=== PATIENT | female | born 1995 | race African-American/Black ===

== ENCOUNTER 2018-10-23 13:07 | Inpatient (IN) | payer MEDICAID ==
[~2018-10-23] VITALS: Ht 165.1 cm; Wt 55.0 kg
[2018-10-23] MEDS ORDERED: ONDANSETRON HCL 4MG/2ML INJ IV STA (13:57)
[2018-10-23] MEDS ORDERED: SODIUM CHLORIDE 0.9% 1,000 ML IV ONE ×2 (13:57→18:28)
[2018-10-23] MEDS ORDERED: MORPHINE SULFATE 4 MG/ML CPJ (NOT FOR IM USE) IV STA (13:57)
[2018-10-23] MEDS ORDERED: FAMOTIDINE 20MG/2ML VIAL IV ONE (14:00)
[2018-10-23 14:32] LABS: HEMATOCRIT. 25.9 % (36.0-48.0); HEMOGLOBIN. 8.9 g/dL (12.0-16.0); MEAN CORPUSCULAR HEMOGLOBIN 24.9 pg (28.0-32.0); MEAN CORPUSCULAR VOLUME 72.4 fL (81.0-99.0); MEAN PLATELET VOLUME 8.9 fl (7.4-10.4); PLATELET 425 x1000/uL (130-400); RED BLOOD CELL COUNT 3.58 mill/uL (4.2-5.4); RED CELL DISTRIBUTION WIDTH 19.1 % (11.6-14.6)
[2018-10-23 14:37] LABS: CHLORIDE 103 mEq/L (98-107)
[2018-10-23 14:41] LABS: ETHANOL BLOOD < 10 mg/dL
[2018-10-23 14:56] LABS: INR 1.1; PARTIAL THROMBOPLASTIN TIME 33.4 sec (23.4-31.0); PROTHROMBIN TIME 11.6 sec (9.6-11.0)
[2018-10-23 14:57] LABS: HCG SCREEN NEGATIVE
[2018-10-23] MEDS ORDERED: POTASSIUM CHLORIDE 20MEQ TABLET SR PO ONE (15:00)
[2018-10-23 15:14] LABS: PLATELET ESTIMATE INCREASED
[2018-10-23 22:09] VITALS: BP 93/60
[2018-10-23] MEDS ORDERED: GABA-531 PO (22:40)
[2018-10-23] MEDS ORDERED: QUET300T19 PO (22:40)
[2018-10-24] VITALS: BP 86/57
[2018-10-24] MEDS ORDERED: SODIUM CHLORIDE 0.9% 1,000 ML IV SCH
[2018-10-24] MEDS ORDERED: ONDANSETRON HCL 4MG/2ML INJ IV PRN
[2018-10-24] MEDS ORDERED: POTASSIUM CHLORIDE 20MEQ TABLET SR PO NR ×2 (02:00→08:15)
[2018-10-24 04:00] VITALS: BP 87/56
[2018-10-24] MEDS: SODIUM CHL 0.9% + KCL 20MEQ/L 1,000 ML IV SCH ×2 (04:34→13:00)
[2018-10-24 07:24] LABS: BASOPHILS % 0.4 % (0.0-2.0); EOSINOPHILS % 0.3 % (0.0-5.0); HEMATOCRIT. 21.2 % (36.0-48.0); HEMOGLOBIN. 7.2 g/dL (12.0-16.0); LYMPHOCYTES % 10.5 % (20.0-50.0); MEAN CORPUSCULAR VOLUME 73.9 fL (81.0-99.0); MEAN PLATELET VOLUME 8.7 fl (7.4-10.4); MONOCYTES % 11.3 % (2.0-8.0); NEUTROPHILS % 77.5 % (40.0-76.0); PLATELET 349 x1000/uL (130-400); RED BLOOD CELL COUNT 2.87 mill/uL (4.2-5.4); RED CELL DISTRIBUTION WIDTH 18.9 % (11.6-14.6)
[2018-10-24 08:00] VITALS: BP 97/47
[2018-10-24 08:48] LABS: TOTAL IRON BINDING CAPACITY 154 ug/dL (250-450)
[2018-10-24] MEDS ORDERED: CEFTRIAXONE 1 G PREMIX 50 ML IV SCH (09:00)
[2018-10-24] MEDS ORDERED: FAMOTIDINE 20MG TABLET PO SCH (09:00)
[2018-10-24] MEDS ORDERED: METRONIDAZOLE 500 MG PREMIX 100 ML IV SCH (10:00)
[2018-10-24 11:29] LABS: CREATINE KINASE 47 IU/L (26-192)
[2018-10-24] MEDS ORDERED: POTASSIUM CHLORIDE INJ 40 MEQ in SODIUM CHLORIDE 0.9% 500 ML IV NR (13:00)
[2018-10-24 14:56] LABS: CLARITY URINE CLOUDY (CLEAR); COLOR URINE YELLOW (YELLOW); KETONES URINE NEGATIVE (NEGATIVE); LEUKOCYTE ESTERASE URINE 1+ (NEGATIVE); NITRITE URINE NEGATIVE (NEGATIVE); OCCULT BLOOD URINE NEGATIVE (NEGATIVE); PH URINE 5.5 (4.5-8.0); PROTEIN URINE 2+ (NEGATIVE); SPECIFIC GRAVITY URINE 1.011 (1.005-1.030); UROBILINOGEN URINE 0.2 E.U./dL (0.2-1.0)
[2018-10-24 15:16] LABS: *AMPHETAMINES SCREEN URINE NEGATIVE (NEGATIVE); *BARBITURATES SCREEN URINE NEGATIVE (NEGATIVE); *BENZODIAZEPINES SCREEN URINE NEGATIVE (NEGATIVE); *COCAINE SCREEN URINE NEGATIVE (NEGATIVE)
[2018-10-24 15:17] LABS: METHADONE URINE SCREEN NEGATIVE (NEGATIVE); PHENCYCLIDINE URINE SCREEN NEGATIVE (NEGATIVE)
[2018-10-24 15:22] LABS: CANNABINOID URINE SCREEN PRESUMTIVE POSITIVE (NEGATIVE); OPIATES URINE SCREEN PRESUMTIVE POSITIVE (NEGATIVE)
[2018-10-24] MEDS ORDERED: MIDODRINE HCL 5MG TABLET PO SCH (17:15)
[2018-10-24 20:00] VITALS: BP 102/60
[2018-10-25 06:21] LABS: ABSOLUTE LYMPHOCYTES 0.4 x10E3/uL (0.7-3.1); ABSOLUTE MONOCYTES 0.3 x10E3/uL (0.1-0.9); ABSOLUTE NEUTROPHILS 2.1 x10E3/uL (1.4-7.0); BASOPHILS 0 % (Not Estab.); HEMATOCRIT 21.5 % (34.0-46.6); HEMOGLOBIN 7.1 g/dL (11.1-15.9); IMMATURE GRANULOCYTES 3 % (Not Estab.); IMMATURE GRANULOCYTES ABSOLUTE 0.1 x10E3/uL (0.0-0.1); LYMPHOCYTES 13 % (Not Estab.); MEAN CORPUSCULAR HEMOGLOBIN 24.7 pg (26.6-33.0); MEAN CORPUSCULAR VOLUME 75 fL (79-97); MONOCYTES 11 % (Not Estab.); NEUTROPHILS 73 % (Not Estab.); PLATELETS 391 x10E3/uL (150-450); RBC 2.87 x10E6/uL (3.77-5.28); RED CELL DISTRIBUTION WIDTH 18.2 % (12.3-15.4); WBC 2.9 x10E3/uL (3.4-10.8)
[2018-10-25 10:11] LABS: % CD 3 POS. LYMPHOCYTES 75.1 % (57.5-86.2); % CD 4 POS. LYMPHOCYTES 0.8 % (30.8-58.5); % CD 8 POS. LYMPH 73.5 % (12.0-35.5); ABSOLUTE CD 3 300 /uL (622-2402); ABSOLUTE CD 4 HELPER 3 /uL (359-1519); ABSOLUTE CD 8 SUPPRESSOR 294 /uL (109-897); CD4/CD8 RATIO 0.01 (0.92-3.72)
== END 2018-10-24 23:27 | disposition left against medical advice (07) | DRG 894 ==
LOC: ER 13:35 → 6EST 17:36 → EDBEDREQSVC 17:40 → EDBEDREQ 17:40 → EDBEDREQTM 17:40 → ENRESERV 19:46
PROVIDERS: ADMIT Internal Medicine; ATTEND Internal Medicine
DX: B20 Human immunodeficiency virus [HIV] disease (principal); N17.0 Acute kidney failure with tubular necrosis; E43 Unspecified severe protein-calorie malnutrition; I95.9 Hypotension, unspecified; D64.9 Anemia, unspecified; Z53.21 Procedure and treatment not carried out due to patient leaving prior to being seen by health care provider; K52.9 Noninfective gastroenteritis and colitis, unspecified; D72.819 Decreased white blood cell count, unspecified; E87.6 Hypokalemia; J45.909 Unspecified asthma, uncomplicated; Z91.19 Patient's noncompliance with other medical treatment and regimen
CPT/HCPCS: 36415; 71045; 74176; 80048; 80305; 80320; 82550; 82728; 83540; 83550; 83605; 83880; 84484; 84703; 86359; 86360; 87077; 87186; 96374; 99285; J0696; J2270; J2405; J3480; J3490; J7030; G0480